=== PATIENT | male | born 1965 | race Caucasian/White ===

== ENCOUNTER 2019-04-22 19:19 | Emergency (ER) | payer MEDICAID ==
[~2019-04-22] VITALS: Ht 165.1 cm; Wt 100.2 kg
[2019-04-22 19:42] VITALS: Ht 165.1 cm; Wt 100.2 kg
[2019-04-22 23:51] VITALS: BP 119/76
== END 2019-04-22 23:51 | disposition home or self-care (01) ==
LOC: ED 19:19
DX: K11.21 Acute sialoadenitis (principal); E11.9 Type 2 diabetes mellitus without complications
CPT/HCPCS: J0696; J1885